=== PATIENT | male | born 1950 | race Caucasian/White ===

== ENCOUNTER 2020-06-18 08:23 | Emergency (ER) | payer MEDICARE ==
[~2020-06-18] VITALS: Ht 172.7 cm; Wt 74.9 kg
--- NOTE | 2020-06-18 08:46 | NUR ---
PT BIB BY EMS C/O LEFT LOWER ABD PAIN. PT STATES HE HAD A BOUT OF IBS THE DAY BEFORE THAT INCLUDED CONSTIPATION AND DIARRHEA. THIS ABD PAIN STARTED THIS AM AND PT STATES IT IS A 'BURNING' FEELING. ABD PAIN CONSTANT.
[2020-06-18 08:58] LABS: BASOPHILS % (AUTO) 1 % (0-1); EOSINOPHILS % (AUTO) 5 % (1-7); LYMPHOCYTES % (AUTO) 16 % (22-44); MEAN CORPUSCULAR HEMOGLOBIN 31.7 pg (27.5-34.5); MEAN CORPUSCULAR HGB CONC 32.8 g/dL (33.2-36.2); MEAN PLATELET VOLUME 7.1 fL (7.4-10.4); MONOCYTES % (AUTO) 7 % (2-9); NEUTROPHILS % (AUTO) 71 % (42-75); PLATELET COUNT 272 x10^3/uL (130-400); RED BLOOD COUNT 4.86 x10^6/uL (4.38-5.82); RED CELL DISTRIBUTION WIDTH 14.2 % (9.4-14.8)
[2020-06-18 08:59] LABS: MD NO
[2020-06-18] MEDS ORDERED: SODIUM CHLORIDE FLUSH 10ML SYR IVF ONE (09:00)
[2020-06-18] MEDS ORDERED: HYDROmorphone 2 MG/ML, 1ML IVPush PRN (09:00)
[2020-06-18] MEDS ORDERED: ONDANSETRON 2MG/ML, 2ML IVPush ONE (09:00)
[2020-06-18] MEDS ORDERED: ONDANSETRON 2MG/ML, 2ML ONE (09:06)
[2020-06-18] MEDS ORDERED: HYDROmorphone 1 MG/ML, 1ML INJ ONE (09:06)
[2020-06-18 09:10] LABS: ALANINE AMINOTRANSFERASE 17 U/L (12-78); ALBUMIN 3.8 g/dL (3.4-5.0); ANION GAP 6 mmol/L (5-15); CALCIUM 8.6 mg/dL (8.5-10.1); CHLORIDE 108 mmol/L (98-107)
[2020-06-18 09:12] LABS: ALKALINE PHOSPHATASE 85 U/L (45-117); BILIRUBIN,TOTAL 0.4 mg/dL (0.2-1.0); TOTAL PROTEIN 7.4 g/dL (6.4-8.2)
[2020-06-18 09:35] LABS: MICROSCOPIC AUTO
--- NOTE | 2020-06-18 09:43 | NUR ---
OFF THE FLOOR TO CT
[2020-06-18] MEDS ORDERED: OMNIPAQUE 350 MG/ML, 100ML BOTTLE ONE (09:53)
[2020-06-18] MEDS ORDERED: KETOROLAC 30 MG/1 ML ONE (10:26)
[2020-06-18] MEDS ORDERED: KETOROLAC 30 MG/1 ML IVPush ONE (10:30)
[2020-06-18 10:43] VITALS: BP 134/94
--- NOTE | 2020-06-18 11:26 | NUR ---
OPT GIVEN DC INSTRUCTIONS AND EDUCATION. PT HAD NO FURTHER QUESTIONS. PT AMBULATEDB TO DC DESK, STEADY GAIT
== END 2020-06-18 11:29 | disposition home or self-care (01) ==
LOC: ED 10:17
DX: N13.2 Hydronephrosis with renal and ureteral calculous obstruction (principal)
CPT/HCPCS: 36415; 74177; 80053; 81001; 85025; 96374; 96375; 99285; J1170; J1885; J2405; Q9967